=== PATIENT | male | born 1995 | race Caucasian/White ===

== ENCOUNTER 2019-04-22 18:40 | Emergency (ER) | payer OTHER ==
[~2019-04-22] VITALS: Ht 177.8 cm; Wt 72.7 kg
[~2019-04-22 18:40] MED LIST: AMOXIL500 MG OR; CEPHALEXIN500 MG OR; CORTISPORIN OTI10 M1 OT; DENIES XX; DOXYCYCL HYC100 MG PO; KEFLEX500 MG OR; MELOXICAM7.5 MG PO; NO HOME MEDS; ULTRAM50 M1 PO; ULTRAM50 MG PO
[2019-04-22 20:25] VITALS: BP 130/78
== END 2019-04-22 20:30 | disposition home or self-care (01) | DRG 563 ==
LOC: ED 18:40
DX: S46.912A Strain of unspecified muscle, fascia and tendon at shoulder and upper arm level, left arm, initial encounter (principal); X50.0XXA Overexertion from strenuous movement or load, initial encounter; Y93.89 Activity, other specified; Y92.89 Other specified places as the place of occurrence of the external cause; Y99.0 Civilian activity done for income or pay

== ENCOUNTER 2022-04-23 16:04 | Emergency (ER) | payer SELFPAY ==
[~2022-04-23] VITALS: Ht 175.3 cm; Wt 79.3 kg
[2022-04-23 16:12] VITALS: BP 148/81
[2022-04-23 17:20] VITALS: BP 148/81
== END 2022-04-23 17:31 | disposition home or self-care (01) | DRG 556 ==
LOC: ED 16:04
DX: M79.641 Pain in right hand (principal); W22.09XA Striking against other stationary object, initial encounter; Y92.009 Unspecified place in unspecified non-institutional (private) residence as the place of occurrence of the external cause